=== PATIENT | female | born 1960 | race Caucasian/White ===

== ENCOUNTER 2017-05-29 06:51 | Day surgery (SDC) | payer BC ==
[~2017-05-29] VITALS: Ht 170.2 cm; Wt 72.4 kg
[2017-05-29 07:16] VITALS: BP 125/88
[2017-05-29] MEDS ORDERED: IBUPROFEN800 MG PO (10:11)
[2017-05-29] MEDS ORDERED: ENDOCET 5-3251 EACH PO (10:11)
[2017-05-29 10:42] VITALS: BP 114/50
== END 2017-05-29 12:14 | disposition home or self-care (01) ==
LOC: SDC 06:51
DX: N80.1 Endometriosis of ovary (principal); N83.201 Unspecified ovarian cyst, right side; K66.0 Peritoneal adhesions (postprocedural) (postinfection); R10.31 Right lower quadrant pain; G89.29 Other chronic pain; E04.2 Nontoxic multinodular goiter; E66.3 Overweight; Z68.24 Body mass index [BMI] 24.0-24.9, adult
CPT/HCPCS: 88305; J0131; J1100; J1885; J2250; J2405; J2710; J2765; J3010